=== PATIENT | male | born 1960 | race African-American/Black ===

== ENCOUNTER 2022-01-29 10:44 | Observation (INO) ==
[~2022-01-29 10:44] MED LIST: ASPIRIN 325 MG TABLET PO ONE; DIAZEPAM 5 MG TABLET PO ONE; MAGNESIUM SULF RIDER 2 GM/50 ML PREMIX IV PRN; POTASSIUM CHLORIDE RIDER 10 MEQ/100 ML PREMIX IV PRN; SODIUM CHLORIDE 0.9% 1,000 ML IV SCH; diphenhydrAMINE CAP 50 MG CAPSULE PO ONE
[2022-01-29] MEDS ORDERED: diphenhydrAMINE CAP 50 MG CAPSULE ONE (11:33)
[2022-01-29] MEDS ORDERED: DIAZEPAM 5 MG TABLET ONE (11:33)
[2022-01-29] MEDS ORDERED: ASPIRIN 325 MG TABLET ONE (11:33)
[2022-01-29] MEDS: SODIUM CHLORIDE 0.9% 1,000 ML IV SCH ×3 (11:34→20:30)
[2022-01-29] MEDS ORDERED: NITROGLYCERIN DRIP 50 MG/250 ML BOTTLE IV ONE (16:06)
[2022-01-29] MEDS ORDERED: VERAPAMIL 5 MG/2 ML VIAL ONE (16:06)
[2022-01-29] MEDS ORDERED: fentaNYL 100 MCG/2 ML VIAL ONE (16:18)
[2022-01-29] MEDS ORDERED: MIDAZOLAM 2 MG/2 ML VIAL ONE (16:18)
[2022-01-29] MEDS ORDERED: ENOXAPARIN 60 MG/0.6 ML SYRINGE ONE (16:42)
[2022-01-29] MEDS ORDERED: ONDANSETRON 4 MG/2 ML VIAL IV PRN (16:59)
[2022-01-29] MEDS ORDERED: ACETAMINOPHEN 325 MG TABLET PO PRN (16:59)
[2022-01-29] MEDS ORDERED: GLUCAGON 1 MG VIAL IM PRN (16:59)
[2022-01-29] MEDS ORDERED: ZALEPLON 5 MG CAPSULE PO PRN (16:59)
[2022-01-29] MEDS ORDERED: DEXTROSE 10% 250 ML BAG IV PRN (17:45)
[2022-01-29] MEDS ORDERED: COLCHICINE 0.6 MG CAPSULE PO PRN (17:51)
[2022-01-29] MEDS: GABAPENTIN 300 MG CAPSULE PO SCH (20:19)
[2022-01-29] MEDS: MAGNESIUM OXIDE 400 MG TABLET PO SCH (20:19)
[2022-01-29] MEDS: gemfibroziL 600 MG TABLET PO SCH (20:19)
[2022-01-29] MEDS ORDERED: ATORVASTATIN 40 MG TABLET PO SCH (21:00)
[2022-01-30] MEDS: SODIUM CHLORIDE 0.9% 1,000 ML IV SCH ×2 (04:28→08:55)
[2022-01-30 04:34] LABS: Basophils % 0.3 % (0.0-0.8); Eosinophils # 0.2 10*3/uL (0.0-0.87); Eosinophils % 2.3 % (0.00-10.9); Hematocrit 34.6 VOL% (42.0-52.0); Hemoglobin 10.8 GM/DL (14.0-18.0); Immature Granulocytes % 0.1 %; Immature Granulocytes Absolute 0.01 #; Lymphocytes % 57.6 % (21.2-54.2); Mean Corpuscular HGB Conc 31.2 GM/DL (32-36); Mean Corpuscular Volume 88.7 FL (87-102); Mean Platelet Volume 10.8 FL (9.6-12.0); Monocytes # 0.4 10*3/uL (0.11-0.8); Neutrophils % 33.7 % (38.7-73.9); Platelet Count 151 T/CUMM (130-400); Red Cell Distribution Width 14.1 % (9.3-17.3)
[2022-01-30 04:58] LABS: Calcium 8.3 MG/DL (8.5-10.1); Osmolality,Calculated 282.7 MOS/KG (273-304); Potassium 3.3 MMOL/L (3.5-5.1); Risk Ratio 3.73; VLDL Cholesterol 103.6 MG/DL
[2022-01-30 05:11] LABS: Atypical Lymphocytes Few; Eosinophils 3 % (0-10); Lymphocytes 54 % (20-55); Microcytosis Slight; Nucleated Red Blood Cells 1 /100 WBC (0-5); Target Cells Slight; Tear Drop Cells Slight; Total Cells Counted 100
[2022-01-30 05:12] LABS: Platelet Estimate Adequate
[2022-01-30] MEDS: POTASSIUM CHLORIDE 20 MEQ TABLET PO PRN ×3 (05:35→10:45)
[2022-01-30] MEDS ORDERED: LEVOTHYROXINE 88 MCG TABLET PO SCH (06:30)
[2022-01-30 08:07] VITALS: BP 170/98
[2022-01-30] MEDS: GABAPENTIN 300 MG CAPSULE PO SCH (08:55)
[2022-01-30] MEDS: gemfibroziL 600 MG TABLET PO SCH (08:55)
[2022-01-30] MEDS: MAGNESIUM OXIDE 400 MG TABLET PO SCH (08:55)
[2022-01-30] MEDS ORDERED: OMEPRAZOLE ODT 20 MG TABLET PO SCH (09:00)
[2022-01-30] MEDS ORDERED: sitaGLIPtin 100 MG TABLET PO SCH (09:00)
[2022-01-30] MEDS ORDERED: atenoloL 50 MG TABLET PO SCH (09:00)
[2022-01-30] MEDS ORDERED: allopurinoL 100 MG TABLET PO SCH (09:00)
[2022-01-30] MEDS ORDERED: CHLORTHALIDONE 25 MG TABLET PO SCH (09:00)
[2022-01-30] MEDS ORDERED: INSULIN GLARGINE 100 UNIT/ML SUBCUT SCH (09:00)
[2022-01-30] MEDS ORDERED: LOSARTAN 25 MG TABLET PO SCH (09:00)
[2022-01-30] MEDS ORDERED: MULTIVITAMIN (CENTRUM) TABLET PO SCH (09:00)
[2022-01-30] MEDS ORDERED: SERTRALINE 100 MG TABLET PO SCH (09:00)
[2022-01-30] MEDS ORDERED: amLODIPine 5 MG TABLET PO SCH (09:00)
[2022-01-30] MEDS ORDERED: POTASSIUM CHLORIDE 20 MEQ TABLET PO SCH (09:00)
[2022-01-30] MEDS ORDERED: SILDENAFIL 20 MG TABLET PO PRN (09:00)
[2022-01-30] MEDS ORDERED: ASPIRIN EC 81 MG TABLET PO SCH (09:00)
== END 2022-01-30 12:19 | disposition home or self-care (01) ==
LOC: N.CL 10:44 → N.TELES 10:44 → N.CL 10:51 → N.TELES 17:09
PROVIDERS: ADMIT Internal Medicine Cardiovascular Disease; ATTEND Internal Medicine Cardiovascular Disease
PROC: CLCCHCL (ICD-10-PCS; 2022-01-29 15:15)